=== PATIENT | female | born 1995 | race Two or more races ===

== ENCOUNTER 2025-03-11 22:37 | Emergency (ER) | payer SELFPAY ==
[~2025-03-11] VITALS: Ht 160 cm; Wt 87.1 kg
[2025-03-11] MEDS ORDERED: ONDANSETRON HCL/PF 4 MG/2 ML VIAL ONE (23:35)
[2025-03-11] MEDS ORDERED: FAMOTIDINE/PF INJ 20 MG/2 ML VIAL IV ONE (23:35)
[2025-03-11] MEDS: IV NS 0.9% 1,000 ML BAG IV ONE (23:39)
[2025-03-11] MEDS: FAMOTIDINE/PF INJ 20 MG/2 ML VIAL IV ONE (23:40)
[2025-03-11] MEDS: ONDANSETRON HCL/PF - ER 4 MG/2 ML VIAL IV ONE (23:40)
[2025-03-11] MEDS ORDERED: LORAZEPAM INJ 2 MG/ML VIAL ONE (23:41)
[2025-03-11] MEDS: LORAZEPAM INJ 2 MG/ML VIAL IV ONE (23:46)
[2025-03-12] MEDS ORDERED: ONDA4TAB11 PO (01:02)
[2025-03-12 01:45] VITALS: BP 119/8; TEMP 98.9; O2SAT 100
== END 2025-03-12 01:45 | disposition home or self-care (01) ==
LOC: ER 22:38
DX: F10.129 Alcohol abuse with intoxication, unspecified (principal); F19.10 Other psychoactive substance abuse, uncomplicated; J45.909 Unspecified asthma, uncomplicated; Z79.899 Other long term (current) drug therapy; Y90.9 Presence of alcohol in blood, level not specified
CPT/HCPCS: 99284; 96374; 96375; 96361; 82962; J2060; J1308; J2405 ×2